=== PATIENT | male | born 2005 | race Caucasian/White ===

== ENCOUNTER 2024-11-27 03:27 | Inpatient (IN) | payer MEDICAID, SELFPAY ==
[2024-11-27] VITALS (10 sets, daily range): BP systolic 93–139; BP diastolic 47–72; PULSE 64–120; RESP 12–18; TEMP 36.4–37.2; O2SAT 97–100; BMI 25.0
--- NOTE | 2024-11-27 03:51 | XR_ITS ---
Examination: Ultrasound soft tissue buttock region TECHNIQUE: Britt scale sonographic images soft tissue lower back upper buttock region Exam date and time: November 27, 2024, 0423 hours INDICATIONS: Painful bumps in the lower back upper buttock region 3 years FINDINGS: 5.8 x 2.4 x 4.2 cm complex hypoechoic mass with internal echoes, most consistent with soft tissue abscess at the area of concern IMPRESSION: 5.8 x 2.4 x 4.2 cm hypoechoic mass with internal echoes, differential would include abscess, pilonidal cyst Recommend CT exam of the lower abdomen and pelvis post intravenous contrast follow-up
--- NOTE | 2024-11-27 04:43 | PD.EDRME ---
Rapid Medical Screening Exam RME Arrival date/time: 11/27/24 03:27 19M with no significant PMH presents to ED with 1 week of R-buttock cleft growth/pain. Patient states he's had it for a few years, but it hasn't caused problems before like this. Chief Complaint: Skin/Abscess/Foreign Body Vital signs: Vital Signs Temperature 98.1 F 11/27/24 03:40 Pulse Rate 64 11/27/24 03:40 Respiratory Rate 18 11/27/24 03:40 Blood Pressure 139/72 H 11/27/24 03:40 Pulse Oximetry (%) 100 11/27/24 03:40 Oxygen Delivery Method Room Air 11/27/24 03:40
--- NOTE | 2024-11-27 05:29 | PRELIM_ITS ---
Soft tissue ultrasound of the lower back/upper buttocks with Doppler. November 27, 2024 0423 hours Clinical history: Likely pilonidal cyst; been there for years Comparison: No prior study is available for comparison. Findings: Subcutaneous complex collection measuring 5.8 x 2.8 x 4.2 cm. No abnormalities detected by Doppler. Impression: Collection in the subcutaneous fat, possibly abscess versus pilonidal cyst. Consider surgical consult. Discussion Details: Results verbally communicated to : Dr. Mendoza at 05:23 AM 11/27/2024 Report Electronically Signed By: Forrest Whitley 11/27/2024 5:28:43 AM [EST]
--- NOTE | 2024-11-27 06:33 | EDNOTE_ITS ---
ED Skin Abcess FB-RME/HPI General Chief complaint: Skin/Abscess/Foreign Body Stated complaint: LUMP ON TOP BUTTOCK Time Seen by Provider: 11/27/24 06:20 Source: patient Arrival date/time: 11/27/24 03:27 19-year-old male with no known medical history presents to the emergency room with a chief complaint of an abscess to the right side of his buttocks. Mode of arrival: ambulatory Limitations: no limitations RME / HPI RME / HPI narrative: 11/27/24 03:27 19M with no significant PMH presents to ED with 1 week of R-buttock cleft growth/pain. Patient states he's had it for a few years, but it hasn't caused problems before like this. Related Data Allergies Allergy/AdvReac Type Severity Reaction Status Date / Time NKA* Allergy Uncoded 02/26/13 23:44 Review of Systems Review of Systems Systems Reviewed: All systems reviewed, normal except as documented Constitutional Constitutional: Reports system reviewed and no additional complaints, except as documented, Denies fatigue, Denies fever(s), Denies headache(s) and Denies weakness Eyes Eyes: Reports system reviewed and no additional complaints, except as documented, Denies blurry vision and Denies change in vision ENT Ears, Nose, Mouth, and Throat: Reports system reviewed and no additional complaints, except as documented, Denies otalgia, Denies headache(s), Denies nasal congestion, Denies throat swelling and Denies vertigo Cardiovascular Cardiovascular: Reports system reviewed and no additional complaints, except as documented, Denies chest pain, Denies dyspnea and Denies dyspnea on exertion Respiratory Respiratory: Reports system reviewed and no additional complaints, except as documented, Denies chest congestion, Denies cough, Denies dyspnea, Denies dyspnea on exertion and Denies wheezing Gastrointestinal Gastrointestinal: Reports system reviewed and no additional complaints, except as documented, Denies abdominal pain, Denies cramping, Denies nausea and Denies vomiting Genitourinary Genitourinary: Reports system reviewed and no additional complaints, except as documented, Denies dysuria and Denies hematuria Musculoskeletal Musculoskeletal: Reports system reviewed and no additional complaints, except as documented and Denies back pain Integumentary/Breasts Skin/Breast: Reports system reviewed and no additional complaints, except as documented, Reports erythema, Reports furuncle, Reports pruritus and Denies wounds Neurologic Neurologic: Reports system reviewed and no additional complaints, except as documented, Denies confusion, Denies headache(s), Denies lack of coordination, Denies vertigo and Denies weakness Psychiatric Psychiatric: Reports system reviewed and no additional complaints, except as documented, Denies anxiety, Denies confusion, Denies depression, Denies paranoia, Denies suicidal ideation and Denies tactile hallucinations Endocrine Endocrine: Reports system reviewed and no additional complaints, except as documented and Denies fatigue Hematologic/Lymphatic Hematologic/Lymphatic: Reports system reviewed and no additional complaints, except as documented and Denies lymphadenopathy Allergic/Immunologic Allergic/Immunologic: Reports system reviewed and no additional complaints, except as documented, Denies throat swelling, Denies urticaria and Denies wheezing Past Medical History Social History SMOKING STATUS: Former smoker ED Exam General Limitations: Present no limitations General appearance: Present alert and in no apparent distress Head Head exam: Present atraumatic Eye Eye exam: Present normal appearance, PERRL and EOMI ENT ENT exam: Present normal exam, normal oropharynx and mucous membranes moist Neck Neck exam: Present normal inspection, full ROM and trachea midline Chest Chest inspection: Present normal inspection and symmetric chest wall rise Respiratory Respiratory exam: Present normal lung sounds bilaterally Cardiovascular Cardiovascular exam: Present regular rate, normal rhythm and normal heart sounds Abdominal Exam Abdominal exam: Present soft and normal bowel sounds Extremities Exam Extremities exam: Present normal inspection and full ROM Back Exam Back exam: Present normal inspection and full ROM Back 1 view image: 2 1. Abscess to the right side of the gluteal cleft. Findings are consistent with a pilonidal cyst Neurological Exam Neurological exam: Present alert, oriented X3 and CN II-XII intact Psychiatric Psychiatric exam: Present normal affect and normal mood Skin Skin exam: Present warm, dry, intact and normal color Course Quality Measures none Orders Category Date Time Status Place in Surgical Day Care Routine Admission 11/27/24 07:30 Active Activity as Tolerated Routine Care 11/27/24 07:29 Ordered COVID-19 Screening Questionnaire NOW Care 11/27/24 07:31 Active Decision to Admit X1 Care 11/27/24 07:31 Active Incision and Drainage Set Up X1 Care 11/27/24 05:38 Active NPO NOW Care 11/27/24 07:30 Active Set Up Suture Tray STAT Care 11/27/24 06:39 Active Wound Care NOW Care 11/27/24 06:39 Active Consult to General Surgery Stat Cons 11/27/24 07:20 Ordered Diet NPO (NOW) Diet 11/27/24 07:30 Active US soft tissue lower back abd Stat Exams 11/27/24 03:51 Completed CBC Stat Lab 11/27/24 07:20 Ordered CMP [Comprehensive Metabolic Panel] Stat Lab 11/27/24 07:20 Ordered Acetaminophen Tab [Tylenol Tab] Med 11/27/24 07:29 Ordered 650 mg PO Q6H PRN Ketorolac Inj [Toradol Inj] Med 11/27/24 07:29 Ordered 15 mg IVP Q6H PRN Lidocaine 1% 20 ml [Xylocaine 1% 20 ML] Med 11/27/24 06:39 Discontinued 20 ml INFL X1 ONE Sodium Chloride 0.9% 1000 ml [Ns] 1,000 ml Med 11/27/24 07:30 Ordered IV 125 mls/hr Vital Signs Vital signs: Vital Signs Temperature 98.1 F 11/27/24 03:40 Pulse Rate 64 11/27/24 03:40 Respiratory Rate 18 11/27/24 03:40 Blood Pressure 139/72 H 11/27/24 03:40 Pulse Oximetry (%) 100 11/27/24 03:40 Oxygen Delivery Method Room Air 11/27/24 03:40 O2 saturation 100% within normal limits Skin / Abscess / Foreign Body MDM Narrative MDM Narrative:: 19-year-old male with no known medical history presents to the emergency room with a chief complaint of an abscess to the right side of his buttocks. Patient is hemodynamically stable and in no apparent distress. He is afebrile not tachycardic and not tachypneic. Physical examination shows a pilonidal cyst above the gluteal cleft. The pilonidal cyst is about 6 cm it is erythemic. An incision and drainage was completed but we were only able to drain blood. No pus. Dr. Granados my attending physician was called over and he attempted to drain this pilonidal cyst. There was no success. The general surgeon Dr. Izaguirre was consulted and she will admit the patient and take him to the operating room at 2 PM. Patient data External records reviewed:: [facility] previous records Clinical information provided by:: patient Social determinants that could affect healthcare access:: none Patient has the following chronic illnesses:: No chronic illness How is presenting disease/condition affected by chronic disease/condition?: no chronic disease Evaluation data The following diagnostics were reviewed and interpreted by me:: lab results and radiology exam(s) Lab and/or radiology exams considered but not ordered:: Labs and radiology exams considered in order Interpretation Summary: N/A Medications / Prescriptions Medications or Prescriptions considered but not ordered:: No medication given Medication administrations:: Medication Administration History Acetaminophen (Acetaminophen 325 Mg Tablet) 650 mg PO Q6H PRN PRN Reason: PAIN SCALE 1-3 (mild Stop: 12/27/24 07:28 Sodium Chloride (Ns) 1,000 mls @ 125 mls/hr IV .Q8H PAULINE Stop: 12/27/24 07:29 Ketorolac Tromethamine (Ketorolac Inj 30 Mg/Ml Vial) 15 mg IVP Q6H PRN PRN Reason: PAIN SCALE 4-6 (Moderate Stop: 12/02/24 07:28 Discontinued Medications Lidocaine HCl (Lidocaine Hcl 1% 20 Ml Vial) 20 ml INFL X1 ONE Stop: 11/27/24 06:40 No medication given Consultations Consultation(s) initiated? (list below): Yes Consultation #1 (Physician, Specialty, Details): Dr. barnett Time: 07:20 Diagnosis Skin/Abscess Differential Diagnosis: abscess of skin or subcutaneous tissue, cellulitis and other (Pilonidal cyst) Most likely diagnosis given after review of the tests above:: Pilonidal cyst Admission Indicated Admission indicated?: indicated Admission Request Was there a request for admission?: Yes Admission Attestation Admission request attestation: Discussed case with [] from Hospitalist service regarding admission. Discussed patients ED course, exam findings, labs, and radiology results. The Hospitalist [agrees,declines] to accept the patient for admission. Disposition Plan Disposition Plan: Discharge Discharge Attestation Discharge Attestation: The patient and all family members were given an opportunity to ask questions and understood the discharge instructions. Discharge instructions specifically effects, indications for sooner follow up or return to the emergency department, and the expected course of current diagnosis. Patient condition: Stable Discharge Plan Plan Patient Disposition: Admit Acute Care w/in Hospital Disposition Comment: Stable Prescriptions/Referrals Referrals: No Primary/Family,Physician [Primary Care Provider] - In 1 week Problem List Clinical Impression: Abscess of skin or subcutaneous tissue, Pilonidal cyst Patient/Caregiver Discharge Instructions Print Language: Luxembourgish Stand Alone Forms: Sara Award Info., Patient Portal Info Letter
[2024-11-27 09:50] LABS: Basophils % (Auto) 0 % (0-2.5); Eosinophils % (Auto) 0 % (0-10); Hematocrit 48.4 % (41.0-53.0); Hemoglobin 17.2 g/dL (13.5-16.0); Immature Granulocytes % (Auto) 0 % (0-0); Immature Granulocytes Auto 0.05 Thou/mm3 (0.00-0.00); Lymphocytes % (Auto) 7 % (10-50); Mean Corpuscular HGB Conc 35.5 g/dl (31.0-37.0); Mean Corpuscular Hemoglobin 30.9 pg (25.0-35.0); Mean Corpuscular Volume 87 fL (80-100); Monocytes # (Auto) 1.1 Thou/mm3 (0.0-0.8); Monocytes % (Auto) 9 % (0-12); Neutrophils # (Auto) 10.8 Thou/mm3 (1.8-7.7); Neutrophils % (Auto) 83 % (37-80); Nucleated Red Blood Cell % 0 /100 WBC (0); Platelet Count 200 Thou/mm3 (140-440); RDW Standard Deviation 37.7 fL (35.1-43.9); Red Blood Count 5.57 Miln/mm3 (4.50-5.90); White Blood Count 12.9 Thou/mm3 (4.5-11.0)
[2024-11-27] MEDS: SODIUM CHLORIDE 0.9% 1000 ML 1,000 ML 125 ML IV (09:51)
[2024-11-27 10:22] LABS: Alanine Aminotransferase 10 U/L (10-49); Albumin, Serum 5.3 gm/dL (3.5-5.0); Albumin/Globulin Ratio 2.1 (1.2-2.2); Alkaline Phosphatase 90 U/L (46-116); Anion Gap 10 (7-16); Aspartate Amino Transferase 17 U/L (0-34); BUN/Creatinine Ratio 11 Ratio (12-20); Bilirubin,Total 1.2 mg/dL (0.3-1.2); Blood Urea Nitrogen 11 mg/dL (9-23); Calcium 10.4 mg/dL (8.3-10.6); Calcium (Corrected) 10.4 mg/dL (8.5-10.1); Carbon Dioxide 28.8 mMol/L (20.0-31.0); Chloride 105 mMol/L (98-107); Estimated Creatinine Clearance 110.2 mL/min (>60); Globulin 2.5 gm/dL (2.3-3.5); Glucose 99 mg/dL (74-106); Osmolality,Calculated 286 (275-295); Potassium 4.3 mMol/L (3.4-5.1); Sodium 144 mMol/L (136-145); Total Protein 7.8 gm/dL (5.7-8.2); eGFR > 60 See Note
--- NOTE | 2024-11-27 10:41 | PC.NURSE ---
This RN marked lidocaine as not given as this RN did not give it. It was prior to this RNs assumption of care
[2024-11-27] MEDS: KETOROLAC INJ 30 MG/ML VIAL 15 MG IVP (10:44)
--- NOTE | 2024-11-27 12:35 | PC.NURSE ---
pt resting w/eyes closed, even rise and fall of chest, denies any pain currently, has visitor at bedside. Will continue w/POC
--- NOTE | 2024-11-27 13:32 | ESHP_ITS ---
HPI Date of Admission 11/27/24 08:43 HPI 19M presenting with pain and swelling at the gluteal cleft. Pt reports he has had issues with this area for the past 2 years but was unaware it was a pilonidal cyst until this ER visit. For the past 2 weeks he has noted increasing pain and swelling but denies any fever or drainage. He underwent two attempts at I&D in ER but pt had difficulty tolerating. US soft tissue shows a likely abscess up to 5.8cm PMH: None PSHx: None Meds: None Allergies: NKDA Review of Systems Review of Systems ROS Unobtainable: All systems reviewed & no additional complaints except as documented Constitutional Constitutional: Denies headache(s) and Denies weakness ENT Ears, Nose, Mouth, and Throat: Denies headache(s) and Denies vertigo Neurologic Neurologic: Reports system reviewed and no additional complaints, except as doc umented, Denies confusion, Denies headache(s), Denies lack of coordination, Denies vertigo and Denies weakness Psychiatric Psychiatric: Denies confusion Meds Home Medications and Allergies Allergies Allergy/AdvReac Type Severity Reaction Status Date / Time NKA* Allergy Uncoded 02/26/13 23:44 Exam Vital Signs Temp Pulse Resp BP Pulse Ox O2 Del Method 97.6 F 80 15 109/58 L 97 Room Air 11/27/24 12:00 11/27/24 12:00 11/27/24 12:00 11/27/24 12:00 11/27/24 12:00 11/27/24 12:00 Constitutional Constitutional: no acute distress Routine Respiratory Exam Respiratory: Present no resp distress Routine Back/Spine/Pelvis Exam Comments: at the right superior aspect of the gluteal cleft there is an area of induration/fluctuance which is midly erythematous and moderately tender to palpation, with an approx 1cm vertical skin incision Results Results: Laboratory Laboratory results: results reviewed Results: Imaging Imaging narrative: US soft tissue reviewed Assessment & Plan Plan 19M presenting with an infected pilonidal cyst. I explained that I&D will be helpful for reducing his pain and that the wound will be left open to heal by secondary intention. I also explained that definitive resection can be undertaken when his infection improves. All questions were answered and pt expressed understanding Quality Measures Quality Measures none
--- NOTE | 2024-11-27 14:39 | SUR.PHASEI ---
pt received from OR in recovery bay 4. pt asleep but responds to voice, breathing unlabored on room air. v/s stable. pt dressing to lower back cdi. report received from [facility] and [place] [place].
--- NOTE | 2024-11-27 14:43 | PD.SUROPNT ---
Date of Procedure 11/27/24 Pre Op Diagnosis Infected pilonidal cyst Post Op Diagnosis Same Procedure Incision and drainage of pilonidal cyst Findings Pilonidal cyst containing copious pus Procedure Description After discussion of risk and benefits, patient was brought to the operating room and general anesthesia was induced. He was placed in prone position with proper padding and was prepped and draped in usual sterile fashion. He received preoperative antibiotics. After timeout a vertical incision was made at the area of most fluctuance which was approximately 1 cm using a #15 blade. There was immediate expression of pus from which a culture was taken. Hemostat was used to break up any loculations and more pus was expressed, approximately 25 cc total. The wound was irrigated with Betadine and saline and there were no signs of bleeding. Preoperatively I had spoken to the patient about the possibility of packing the wound daily, however he felt like this would not be feasible so I opted to place 1/2 inch [place] drain into the wound. [place] drain was sutured to the skin and to itself using two 2-0 nylon interrupted sutures. Half percent Marcaine was infiltrated into the subcutaneous tissue for a total of 20 cc. The area was cleaned and again there were no signs of bleeding. The Charlie drain was covered with gauze and an abdominal pad which was secured with Medipore tape. Patient was returned to supine position and extubated without complication. He was brought to PACU in stable condition Pathology / specimen Other (Pilonidal abscess culture) Estimated Blood Loss 20 Surgeon Elmira Sharma MD Surgical Staff Operation Date: 11/27/24 14:15 Case Staff Anesthesiologist: Phan Caro Assisting Surgeon: [email or web address]. DAVALOSloading machine operator: Valerie Bishop
--- NOTE | 2024-11-27 14:46 | PD.SURDS ---
Planned Discharge Date 11/27/24 DS: Providers Provider Date of admission: 11/27/24 08:43 Primary care physician: Physician No Primary/Family Admitting Provider: Elmira Sharma MD Attending Provider on Admission: Elmira Sharma MD Consults: 11/27/24 07:20 Consult to General Surgery Stat Comment: Consulting Provider: Elmira Sharma Attending Provider on DC: Elmira Sharma MD Discharging Provider: Elmira Sharma MD Diagnosis Discharge Diagnosis (1) Infected pilonidal cyst: Status: Acute Problem List Completed Was Problem List Reviewed/Reconciled?: Yes Hospital Course Brief History: 19M presenting with pain and swelling at the gluteal cleft. Pt reports he has had issues with this area for the past 2 years but was unaware it was a pilonidal cyst until this ER visit. For the past 2 weeks he has noted increasing pain and swelling but denies any fever or drainage. He underwent two attempts at I&D in ER but pt had difficulty tolerating. US soft tissue shows a likely abscess up to 5.8cm PMH: None PSHx: None Meds: None Allergies: NKDA Exam Vital Signs Temp Pulse Resp BP Pulse Ox O2 Del Method 97.6 F 80 15 109/58 L 97 Room Air 11/27/24 12:00 11/27/24 12:00 11/27/24 12:00 11/27/24 12:00 11/27/24 12:00 11/27/24 12:00 Discharge Plan Plan Patient Disposition: HOME (Self Care) Disposition Comment: Stable Prescriptions/Referrals Prescriptions/Med Rec: New tramadol 50 mg tablet 50 mg PO Q6H PRN (Reason: pain) Qty: 20 0RF cephalexin 500 mg capsule 500 mg PO Q12H Qty: 8 0RF Referrals: Elmira Sharma MD [Physician] - (You will receive a phone call to confirm a follow-up appointment with me the week of 12/15) No Primary/Family,Physician [Primary Care Provider] - Patient/Caregiver Discharge Instructions Other Discharge Activity Instructions:: Your wound has a drain sutured in place which will allow continuous drainage of pus Change the gauze covering the drain once daily, or more often if it becomes saturated It is okay to shower with the drain in place The drain may fall out which is not an emergency, but if you notice that the swelling returns and/or you have increasing pain or fever please seek care in ER If it does not fall out on its own the drain will be removed at your follow-up appointment, depending on the output and appearance of the wound You may take tylenol and motrin in addition to the prescribed pain medication as needed Education Materials: ED Cyst Pilonidal Infected IandD, ED Wound Care Print Language: Jordanian Stand Alone Forms: Sara Award Info., Patient Portal Info Letter Discharge Order Discharge Orders: Discharge (Routine); Ordered 11/27/24 Ordered By: Elmira Sharma Results Results: Laboratory Laboratory results: results reviewed Results: Imaging Imaging narrative: US soft tissue reviewed Procedures Procedures Incision and drainage of pilonidal cyst
--- NOTE | 2024-11-27 15:10 | SUR.PHASEII ---
pt able to tolerate oral fluids without difficulty swallowing or nasuea/vomiting.
--- NOTE | 2024-11-27 15:35 | SUR.PHASEII ---
pt awake and alert, breathing unlabored on room air. v/s stable. pt dressing to lower back cdi. pt able to ambulate to wheelchair with steady gait. d/c instructions given with mother and sister in room, all questions answered. pt d/c via wheelchair with all belongings.
== END 2024-11-27 15:35 | disposition home or self-care (01) | DRG 364 ==
LOC: SERX 07:36 → SERHOLD 08:45
PROVIDERS: Nurse Practitioner Family; Admitting Provider Surgery; Emergency Provider Emergency Medicine; Visit Provider Surgery
PROC: 0J990ZZ Drainage of Buttock Subcutaneous Tissue and Fascia, Open Approach (ICD-10-PCS; principal; 2024-11-27 14:00)
DX: L05.01 Pilonidal cyst with abscess (principal); Z87.891 Personal history of nicotine dependence
CPT/HCPCS: 36415; 76705; 80053; 85025; 87070; 87075; 87076; 87205; 99285; A4217; A4649; J0131; J0690; J1171; J1885; J2250; J2704; J3010; J3490; J7030; J1596

== ENCOUNTER 2024-12-15 14:48 | Outpatient (AMB) | payer MEDICAID, SELFPAY ==
[2024-12-15 15:12] VITALS: BP 111/69; PULSE 67; RESP 22; TEMP 36.7; O2SAT 98; BMI 23.9
--- NOTE | 2024-12-15 15:12 | GSCOFFNT_ITS ---
Vital Signs - [facility] 12/15/24 15:12 Height 1.71 m Height Method Stated Weight 70.335 kg Weight Measurement Method Standing Scale BMI 23.9 BP 111/69 Blood Pressure Source Automatic Cuff Blood Pressure Location Left Upper Arm Position Sitting Respiration 22 H Pulse 67 Pulse Source Monitor Temp 98.1 F Temp Source Temporal Artery Scan Pulse Oximetry (%) 98 Oxygen Delivery Method Room Air Med/Allergies Allergies & Medications Allergies NKA* Allergy (Uncoded 12/15/24 15:13) Medication Reconciliation No Known Home Medications 12/15/24 [History Confirmed 12/15/24] MA Intake Visit Data Collection New Patient or Established: Established Patient (seen at [facility] within 3 years) Reason for Visit:: 2 WEEK POST OP PILONIDAL CYST Pain Present Currently: No Pain scale:: 0 Pain Scale Used: Amos-Humphreys/Numerical PCP or OBGYN visit in last 3 months: Yes Smoking Status Smoking Status: Current some day smoker Cessation Counseling Provided: AIDAN was advised that quitting smoking is the single most important factor to protect the health of themselves and their family. Discussed the benefits of quitting smoking with patient. Encouraged patient to quit smoking and provided Cessation assistance materials and resources. Tobacco Use: Vapor Cigarette (VAPE) Years smoked: 1 Are you interested in quitting?: Yes Would you like additional Smoking Cessation Counseling?: Yes Immunization / Flu Flu Vaccine in the Last 12 Months: No Flu Vaccine Exclusion Criteria: Refused by Patient Past Medical History Past Medical History NEUROLOGIC: Negative Seizures CARDIAC: Negative Congestive Heart Failure RESPIRATORY: Negative Chronic Obstructive Pulmonary Disease (COPD) GENITOURINARY: Negative Renal Disease ENDOCRINE: Negative Diabetes Mellitus Type 1 or Diabetes Mellitus Type 2 OTHER HISTORY: Negative Blood Transfusions, Blood Transfusion Reaction or Anesthesia Reactions Social History SMOKING STATUS: Smoking status: Current some day smoker SUBSTANCE USE: Substance use type: marijuana ALCOHOL: Alcohol Intake: Current ALCOHOL FREQUENCY: Alcohol Intake Frequency: 0-2 Drinks per Day HPI HPI Narrative 19M who presented with an infected pilonidal cyst s/p I&D with placement of black drain 11/27 here for planned follow up. Pt reports feeling well overall with no pain, he is having minimal drainage from the wound requiring only daily changes. Otherwise he has no complaints ROS Review of Systems Systems Reviewed: All systems reviewed, normal except as documented Objective/Exam General General Appearance: alert, cooperative and well groomed Resp Respiratory exam: Absent respiratory distress Back Back exam: Present other (pilonidal cyst with black intact which I removed today, minimal purulent drainage, no surrounding erythema) Assessment & Plan Diagnosis / Problem List (1) Infected pilonidal cyst: Status: Acute Assessment & Plan: 19M s/p I&D of infected pilonidal cyst 11/27 now with black removed, recovering well. I advised pt he can consider elective pilonidal cystectomy once the infection clears Plan: F/u in 4 weeks Office Procedures GNS Level of Care Nursing/Assessment Patient Status: Established Patient Nursing Assessment/Reassesment: Medication Reconciliation, Update PMH in EMR and Vital Signs Coordination of Care: Complex Care/Chronic Disease 5 or more, Education Complex Pt/Fam, Consent,records obtained, informed consent, Results/Orders obtained and Staff clarify orders Established Patient Charge Established Patient Point Assignment: 105 Established Patient Point Charge: EP Level 3 (80-115) Patient Portal Questionaires Social History Tobacco History Smoking Status: Current some day smoker Alcohol History Alcohol Intake: Current Alcohol Intake Frequency: 0-2 Drinks per Day Review of Systems Report any current symptoms Only answer those that you have currently: Past Medical History Past Medical History Have you ever been diagnosed with any of the following: Neurological Problems Seizures: No Cardiology Problems Congestive Heart Failure: No Respiratory Problems Chronic Obstructive Pulmonary Disease (COPD): No Genital/Urinary Problems Renal Disease: No Endocrine Problems Diabetes Mellitus Type 1: No Diabetes Mellitus Type 2: No Other Problems Blood Transfusions: No Blood Transfusion Reaction: No Anesthesia Reactions: No
== END 2024-12-15 15:29 | disposition home or self-care (01) ==
LOC: HODSRG 14:48
PROVIDERS: Supervising Provider Surgery; Visit Provider Surgery
DX: L05.91 Pilonidal cyst without abscess (principal)
CPT/HCPCS: 99213; G0463

== ENCOUNTER 2025-01-12 10:01 | Outpatient (AMB) | payer MEDICAID, SELFPAY ==
[2025-01-12 10:29] VITALS: BP 122/71; PULSE 60; RESP 18; TEMP 36.6; O2SAT 98; BMI 24.5
--- NOTE | 2025-01-12 10:31 | PD.GSCLVISIT ---
Vital Signs - [facility] 01/12/25 10:29 01/12/25 10:33 Height 1.71 m 1.71 m Height Method Stated Stated Weight 71.724 kg 71.724 kg Weight Measurement Method Standing Scale Standing Scale BMI 24.5 24.5 BP 122/71 122/71 Blood Pressure Source Automatic Cuff Automatic Cuff Blood Pressure Location Right Upper Arm Right Upper Arm Position Sitting Sitting Respiration 18 18 Pulse 60 60 Pulse Source Monitor Monitor Temp 97.8 F 97.8 F Temp Source Temporal Artery Scan Temporal Artery Scan Pulse Oximetry (%) 98 98 Oxygen Delivery Method Room Air Room Air Med/Allergies Allergies & Medications Allergies NKA* Allergy (Uncoded 01/12/25 10:31) Medication Reconciliation No Known Home Medications 12/15/24 [History Confirmed 01/12/25] MA Intake Visit Data Collection New Patient or Established: Established Patient (seen at [facility] within 3 years) Seen by Clinical Staff ONLY (RN/MA): No Reason for Visit:: 4 WEEKS FOLLOW UP Pain Present Currently: No Pain Scale 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 Discussed the benefits of quitting smoking with patient. Encouraged patient to quit smoking and provided Cessation assistance materials and resources. Tobacco Use: Cigarette Years smoked: 2 Are you interested in quitting?: No Immunization / Flu Flu Vaccine in the Last 12 Months: No Flu Vaccine Exclusion Criteria: No Exclusion Criteria Past Medical History Past Medical History NEUROLOGIC: Negative Seizures CARDIAC: Negative Congestive Heart Failure RESPIRATORY: Negative Chronic Obstructive Pulmonary Disease (COPD) GENITOURINARY: Negative Renal Disease ENDOCRINE: Negative Diabetes Mellitus Type 1 or Diabetes Mellitus Type 2 OTHER HISTORY: Negative Blood Transfusions, Blood Transfusion Reaction or Anesthesia Reactions Social History SMOKING STATUS: Smoking status: Current some day smoker SUBSTANCE USE: Substance use type: marijuana ALCOHOL: Alcohol Intake: Current ALCOHOL FREQUENCY: Alcohol Intake Frequency: 0-2 Drinks per Day Travel Risk Travel Hx Recent Travel: No HPI HPI Narrative 19M who presented with an infected pilonidal cyst s/p I&D with placement of black drain 11/27 here for planned follow up. Pt reports feeling well overall with no pain and minimal drainage, he is still covering it daily ROS Review of Systems Systems Reviewed: All systems reviewed, normal except as documented Objective/Exam General General Appearance: alert, cooperative and well groomed Resp Respiratory exam: Absent respiratory distress Back Back exam: Present other (healed incision at the crest of gluteal cleft, no drainage, no erythema, no tenderness) Assessment & Plan Diagnosis / Problem List (1) Pilonidal cyst: Status: Acute Assessment & Plan: 19M who presented with an infected pilonidal cyst s/p I&D with placement of black drain 11/27 here for planned follow up. Pt reports feeling well overall with no pain, and wound is now fully closed. I reiterated to pt that hair removal in the area can help prevent recurrent infections, and also reiterated that smoking cessation would be helpful as well. I informed pt that definitive surgery can be done to prevent future infections, but pt understandably prefers to hold off as he needs to return to work. Pt is encouraged to reach out with further questions and/or when he would like to schedule pilonidal cystectomy Office Procedures GNS Level of Care Nursing/Assessment Patient Status: Established Patient Nursing Assessment/Reassesment: Medication Reconciliation, Update PMH in EMR and Vital Signs Coordination of Care: Complex Care and Chronic Disease 1-5, Education Complex Pt/Fam, Consent,records obtained, informed consent, Results/Orders obtained and Staff clarify orders Established Patient Charge Established Patient Point Assignment: 95 Established Patient Point Charge: EP Level 3 (80-115) Patient Portal Questionaires Social History Tobacco History Smoking Status: Current some day smoker Alcohol History Alcohol Intake: Current Alcohol Intake Frequency: 0-2 Drinks per Day Domestic Abuse History Do You Feel Safe at Home: Yes Review of Systems Report any current symptoms Only answer those that you have currently: Past Medical History Past Medical History Have you ever been diagnosed with any of the following: Neurological Problems Seizures: No Cardiology Problems Congestive Heart Failure: No Respiratory Problems Chronic Obstructive Pulmonary Disease (COPD): No Genital/Urinary Problems Renal Disease: No Endocrine Problems Diabetes Mellitus Type 1: No Diabetes Mellitus Type 2: No Other Problems Blood Transfusions: No Blood Transfusion Reaction: No Anesthesia Reactions: No
[2025-01-12 10:33] VITALS: BP 122/71; PULSE 60; RESP 18; TEMP 36.6; O2SAT 98; BMI 24.5
== END 2025-01-12 10:50 | disposition home or self-care (01) ==
LOC: HODSRG 10:01
PROVIDERS: Supervising Provider Surgery; Visit Provider Surgery
DX: Z48.817 Encounter for surgical aftercare following surgery on the skin and subcutaneous tissue (principal); F17.210 Nicotine dependence, cigarettes, uncomplicated
CPT/HCPCS: 99213; G0463